=== PATIENT | female | born 1995 | race Caucasian/White ===

== ENCOUNTER 2017-04-10 11:54 | Emergency (ER) | payer OTHER ==
[2017-04-10 12:13] VITALS: BP 112/74
--- NOTE | 2017-04-10 12:22 | UC ---
Throat Pain/Nasal Mark HPI - HPI Summary HPI Summary: 21F presents with sore throat for a week. She states it started with a fever, cough and sinus congestion. She had some minor throat pain that has been getting worst. 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 She denies any chest pain or SOB. She has history of strept but not mono. She denies any fatigue, abdominal pain, n/v/d. She has been taking cold medication. - History of Current Complaint Chief Complaint: UCGeneralIllness Stated Complaint: THROAT COMPLAINT Time Seen by Provider: 04/10/17 12:04 Hx Last Menstrual Period: 03/30/17 - Allergies/Home Medications Allergies/Adverse Reactions: Allergies Allergy/AdvReac Type Severity Reaction Status Date / Time Sulfa Antibiotics Allergy GI Upset, Verified 04/10/17 12:08 Rash Home Medications: Home Medications Enscyce 1 tab PO DAILY 04/10/17 [History] PMH/Surg Hx/FS Hx/Imm Hx Previously Healthy: Yes Endocrine History: Other Other Endocrine History: no DM Respiratory History: Other Other Respiratory History: no asthma - Surgical History Surgical History: Yes Surgery Procedure, Year, and Place: Appendectomy, ~2007, [place] - Family History Known Family History: Negative: Respiratory Disease - Social History Alcohol Use: Weekly Substance Use Type: Marijuana Substance Use Comment - Amount & Last Used: "less than monthly" Smoking Status (MU): Never Smoked Tobacco - Immunization History Most Recent Influenza Vaccination: Not the 2016/2017 Season Review of Systems Constitutional: Fever ENT: Sore Throat Respiratory: Cough All Other Systems Reviewed And Are Negative: Yes Physical Exam Triage Information Reviewed: Yes Appearance: Well-Appearing Vital Signs: Initial Vital Signs Temp 98.4 F 04/10/17 12:05 Pulse 92 04/10/17 12:05 Resp 16 04/10/17 12:05 BP 112/74 04/10/17 12:05 Pulse Ox 100 04/10/17 12:05 Vital Signs Reviewed: Yes Eyes: Positive: Conjunctiva Clear ENT: Positive: Pharyngeal erythema, Nasal congestion, TMs normal, Tonsillar swelling - +1, Uvula midline, Other - soft palate symmetric. Negative: Tonsillar exudate, Trismus, Muffled voice, Hoarse voice, Sinus tenderness Neck: Positive: Supple, Nontender, No Lymphadenopathy Respiratory: Positive: Lungs clear, Normal breath sounds Cardiovascular: Positive: RRR Abdomen Description: Positive: Nontender, Soft Bowel Sounds: Positive: Present Musculoskeletal Exam: Normal Neurological Exam: Normal Psychological Exam: Normal Throat Pain/Nasal Course/Dx - Course Course Of Treatment: 21F presents with sore throat for a week. She states it started with a fever, cough and sinus congestion. She had some minor throat pain that has been getting worst. 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 She denies any chest pain or SOB. She has history of strept but not mono. She denies any fatigue, abdominal pain, n/v /d. She has been taking cold medication. on exam uvula midline, soft palate symmetric, tonsil+1. neg trismus. strep neg. will treat with decardon and magic mouth wash. patient understand and agrees with plan. - Differential Dx/Diagnosis Differential Diagnosis/HQI/PQRI: Peritonsillar Abscess, Pharyngitis, Tonsillitis Provider Diagnoses: pharyngitis Discharge - Discharge Plan Condition: Good Disposition: HOME Prescriptions: Dexamethasone TAB* [Decadron TAB*] 4 mg PO DAILY #5 tab Magic Mouth Was-BARBIE/MAAL/LIDO* 5 ml SWISH SPIT QID #100 ml Patient Education Materials: Pharyngitis (ED) Referrals: [facility] [Outside] Additional Instructions: Take steroid once a day for 5 days Take Tylenol or ibuprofen for pain Use saline spray in nose as much as needed Use humidifier in room or can use warm water in bowls Can gargle salt water Can use cough drops or products such as cloraseptic spray Establish care with primary care physician Return to ED if develop fever does not respond to Tylenol or ibuprofen, inability to swallow, or difficulty breathing or any new or worsening symptoms
== END 2017-04-10 12:43 | disposition home or self-care (01) ==
LOC: UCCORT 11:54
DX: J02.9 Acute pharyngitis, unspecified (principal); Z88.2 Allergy status to sulfonamides
CPT/HCPCS: 87651; 99202; G0463

== ENCOUNTER 2018-04-13 21:43 | Emergency (ER) | payer OTHER ==
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
--- OUTSIDE RECORDS SUMMARY | 2018-04-13 21:50 | XMS REPORT | Continuity of Care Document ---
:1995 External Reference #:[id number] Author Name Elsi Mcdonald MD Address [address] [facility] [place] [address] Care Team Providers Name Role Phone Elsi Mcdonald MD Care Team Information [employer] Unavailable Payers Type Date Identification Numbers Payment Provider Subscriber Effective: Policy Number: [id number] Doug Flores 2016 Group Number: [id number] [id number] PayID: [id number] [place] [address] Advance Directives Description No Information Available Problems Date Description Provider Status Onset: 03/26/2018 Mild persistent asthma Elsi Mcdonald [...] completed, in Counseling Bachelor's Degree Psychology from [employer] in [place], [place] plans to get a PHD in [...] 1 time per month Smoking Status Reviewed: 02/07/18 Patient has never smoked Currently Active Patient is currently sexually active Allergies, Adverse Reactions, Alerts Date Description Reaction Status Severity Comments 02/07/2018 Seasonal Active 02/07/2018 Cat Dander Active 03/26/2018 Sulfa Antibiotics Active rash and intestinal discomfort Medications Medication Date Status Form Strength Qnty SIG Indications Ordering Provider Fluticasone 03/26 Active Aerosol 232-14mcg 1unit 2 J45.30 Frannie Mcdonald/Salm /2018 /Act s inhalations MD Elis eterol bid Fluticasone 03/26 Active Suspension 50mcg/Act 16gm 2 J30.9 Harry MD Elsi Isibloom 03/04 Active Tablets 0.15-30mg 12tab 1 po daily Harry -mcg s MD Elsi Loratadine Active Tablets 10mg 1 by mouth Unknown /0000 every day. prn Womens Active Tablets One by mouth Unknown Multivitamin /0000 daily Fluconazole Active Tablets 150mg Unknown /0000 Prednisone Active Tablets 20mg Currently Unknown /0000 taking 10mg Proair HFA Active Aerosol 108(90Bas 2 puffs Unknown /0000 e) every 4 mcg/Act hours as needed Metronidazole 02/13 Hx Tablets 500mg 4tabs 4 by mouth x 1 dose MD Elsi - 03/25 Norgestimate-Et 02/07 Hx Tablets 0.25-35mg 28tab 1 by mouth berkley Mcdonald -mcg s every day MD Elsi - 03/04 Immunizations CPT Code Status Date Vaccine Reaction Lot # [id number] Given 02/21/2018 Afluria Or Fluvirin Flu Vac Intramuscular 46893 Given 02/07/2018 Tdap (Adacel) Ages 7 And Im inj completed, Pt [id number] Above Only tolerated well 14435 Given 02/07/2018 Meningococcal Im inj completed, Pt [id number] B(Bexsero)protn otrMembran tolerated well Vesicle Vccn 2 dose sche [id number] Given 04/16/2013 Flu Vaccine NOS 60648 Given 10/30/2012 Menactra/Menveo Per [facility] Meningococcal Vaccine 52007 Given 10/31/2011 Hepatitis A, Ped/Adolescent Per [facility] 2 Dose Schedule 32565 Given 09/24/2010 [facility] 67985 Given 09/23/2008 Menactra/Menveo Per [facility] Meningococcal Vaccine 60090 Given 04/02/2008 Gardasil-9 (HPV) [facility]avalent [facility] [address] Given 11/28/2007 Gardasil-9 (HPV) Nonavalent [facility] 2[facility] [address] Given 09/20/2007 Gardasil-9 (HPV) Nonavalent 2-3 Dose Schedule Im U-DTaP Given 10/11/2006 DTaP (Non Billable) [facility] Un[facility] 87547 Given 10/11/2006 Varicella (Chicken Pox) Per [facility] Immunization U-Polio Given 03/01/2000 Polio (Non Billable) Per [facility] Unspecified U-DTaP Given 03/01/2000 DTaP (Non Billable) Per [facility] Unspecified 37525 Given 03/01/2000 MMR Virus [facility] 84035 Given 10/11/1996 Varicella (Chicken Pox) Per [facility] Immunization U-DtapHi Given 12/28/1995 DTap,Hib,IPV (Non Billable) Per [facility] Unspecified 57924 Given 12/28/1995 DTP & Hib [facility]ization [facility] 53363 Given 12/28/1995 MMR Virus Immunization Per [facility] U-Polio Given 03/09/1995 Polio (Non Billable) Per [facility] Unspecified U-DtapHi Given 03/09/1995 DTap,Hib,IPV (Non Billable) [facility] Un[facility] 89798 Given 03/09/1995 Hepatitis B Vac Per [facility] Ped/Adolescent 3 Dose Schedule 30934 Given 03/09/1995 DTP & Hib Immunization [facility] U-Polio Given 1994 Polio (Non Billable) [facility] Unspecified U-DtapHi Given 1994 DTap,Hib,IPV (Non Billable) [facility] Unspecified 34458 Given 1994 DTP & Hib Immunization Per [facility] U-Polio Given 1994 Polio (Non Billable) Per [facility] Unspecified U-DtapHi Given 1994 DTap,Hib,IPV (Non Billable) Per [facility] Unspecified 85667 Given 1994 Hepatitis B Vac Per [facility] Ped/Adolescent 3 Dose Schedule 62368 Given 1994 DTP & Hib Immunization Per [facility] 32265 Given 1994 Hepatitis B Vac Per [facility] Ped/Adolescent 3 Dose Schedule Vital Signs Date Vital Result Comment 03/26/2018 11:31am Weight 147.00 lb Heart Rate [...] Result H/L Range Note Laboratory test 02/07/2018 [facility] Pap Smear Thin Prep SEE NOTE 1 finding [facility] 176 mg/dL 50-199 2 Triglycerides 124 mg/dL 30-200 HDL 52 mg/dL 35-85 3 Chol/ HDL Ratio 3.4 ratio Low 3.7-5.6 VLDL 25 mg/dL 2-29 LDL (Calc) 99 mg/dL 20-99 4 CBC with Auto Diff-fcmg 02/07/2018 [facility] WBC 8.0 K/uL 4.1-11.0 RBC 4.52 M/uL [...] 5-15 9 [facility] HIV Combo NON REACTIVE Non Reactive GC/Chlamydia [facility] Chlamydia by Dna NEGATIVE Negative Dna Probe Probe GC by Dna Probe NEGATIVE Negative 1 LABORATORY [facility]. [address] [place] [address] CYTOLOGY REPORT Source of Specimen(s): Thin Prep [...] 02/11/2018 13:03 Electronically Signed Out By Amina BALL([facility]) dss ICD9 Code: Z01.411 CPT code: A: IM701Q Unless otherwise specified, testing performed by [facility] [address] [place] [id number] 2 today 3 Per NCEP ATP III [...] by the kidneys. 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) w abnormal findings Z13.89 Encounter for screening for other disorder Z11.3 Encntr screen for infections w sexl mode of transmiss Z23 Encounter for immunization Plan of Treatment Future Appointment(s):04/19/2018 1:45 pm - Elsi Mcdonald MD at [facility]02/14/2019 10:30 am - Elsi Mcdonald MD at [facility]03/26/2018 - Elsi Mcdonald MDJ45.30 Mild persistent asthma, uncomplicatedNew Medication:Fluticasone Propionate/ Salmeterol 232-14 mcg/Act - 2 inhalations bidComments:will add daily preventive medication and reassess in 1 moFollow up:3-4 weeks follow-up asthma and vzgttdhocE35.9 Allergic rhinitis, unspecifiedNew Medication:Fluticasone Propionate 50 mcg/Act - 2Comments:not controlled - add fluticasone nasal vitxnY62.0 Acute vaginitisComments:counseled that vaginal discharge is normal in a woman with menstrual cycles. Ideally, avoid antibiotics unless there is pain or severe itching.Z68.25 Body mass index (BMI) 25.0-25.9, adult
[2018-04-13 22:01] VITALS: BP 144/79
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
[2018-04-13] MEDS ORDERED: Fluconazole 100 MG TAB* TAB PO ONE (22:29)
--- NOTE | 2018-04-15 13:46 | ED ---
Progress - Progress Note Progress Note: Vaginal results for Gardnerella and Alesia from April 13, 2018 Come back showing a positive Gardnerella and positive Alesia and on the genital culture that she still 3+. Patient's being treated with, sulfur Alesia. Nursing to call patient and let her know if these results and I have sent a prescription for metronidazole to cover the Gardnerella. Gonorrhea and chlamydia results are pending. Course/Dx - Course Course Of Treatment: begin diflucan x 5 days for vaginitis--clinically most consistent with Alesia. Await swabs. Discharge - Sign-Out/Discharge Documenting (check all that apply): Patient Departure All imaging exams completed and their final reports reviewed: No Studies - Discharge Plan Condition: Stable Disposition: HOME Prescriptions: Fluconazole 100 MG TAB* [Diflucan 100 MG TAB*] 100 mg PO DAILY #4 tab metroNIDAZOLE [Flagyl 500 MG TAB] 500 mg PO BID #14 tab Patient Education Materials: Vaginitis (ED) Referrals: Elsi Mcdonald MD [Primary Care Provider] - Additional Instructions: At this time, take fluconazole 100mg daily x 5 days for suspected yeast. Cultures are pending for BV, Trichomonas, GC and chlamydia. I have sent a genital swab for bacterial culture to screen for other causes of vaginitis which are less common, such as strep. Follow up with your PMD to discuss strategies for prevention of yeast. Abstain from intercourse until full cultures are reported. Avoid vaseline on the perineum. For itch, you might use topical miconazole or 1 % hydrocortisone cream after washing with clear warm water and drying well but gently. - Billing Disposition and Condition Condition: STABLE Disposition: Home
== END 2018-04-13 22:50 | disposition home or self-care (01) ==
LOC: UCCORT 21:43
DX: B37.3 Candidiasis of vulva and vagina (principal); Z88.1 Allergy status to other antibiotic agents
CPT/HCPCS: 87070; 87480; 87491; 87510; 87591; 87661; 99212; A9270-GY; G0463